=== PATIENT | male | born 1950 | race African-American/Black ===

== ENCOUNTER 2018-07-24 23:33 | Inpatient (IN) | payer MEDICARE, OTHER ==
--- NOTE | 2018-07-25 00:21 | PDOC.FPRHP ---
- History of Present Illness Chief Complaint: Right sided weakness History of Present Illness: Mr Pineda is a 67yo male presenting with right sided weakness and numbness. He states that tonight he started to have some tingling and numbness in his R leg. He had a recent CVA in April that left with R sided weakness. He said that he never made a full recovery from his last stroke and that he pretended he was better before so he could get out of the hospital. He states that nothing changed tonight except some numbness in his leg. He denies any worsening weakness today. He states his speech has also been bad since his stroke but he denies any acute change. He states that he came to the hospital because he felt weak, short of breath and high blood pressure. He will intermittently say he had weakness, then deny weakness. He cannot state what time it started. Reports state estimated 2030 last night but he reports no acute change. He told ERMD symptoms started last Thursday. ED Course: ASA given. No TPA due to having taken Eliquis earlier today and unclear start of symptoms. - Allergies/Adverse Reactions Allergies Allergy/AdvReac Type Severity Reaction Status Date / Time iodine Allergy Verified 07/25/18 00:54 - Home Medications Medication Instructions Recorded Confirmed Type Apixaban [Eliquis] 5 mg PO BID 07/25/18 07/25/18 History Aspirin [Adult Aspirin] 81 mg PO QAM 07/25/18 07/25/18 History Atorvastatin Calcium 40 mg PO HS 07/25/18 07/25/18 History Carvedilol [Coreg] 3.125 mg PO BID 07/25/18 07/25/18 History Hydrochlorothiazide 25 mg PO QAM 07/25/18 07/25/18 History Loratadine [Claritin] 10 mg PO QAM 07/25/18 07/25/18 History Ondansetron HCl [Zofran] 4 mg PO PRN PRN 07/25/18 07/25/18 History - History PMHx: [place], CVA with residual R sided weakness, arrhythmia (a fib) on Eliquis, HTN , chronic back pain, stomach ulcer, chronic L knee pain PSHx: Back surgery FHx: sister: hypotension; brother/dad: HTN Social: Remote h/o tobacco abuse (30 yrs smoking 10 cigars/day), denies tobacco or drug use - Review of Systems General: reports: fever/chills. denies: weight/appetite/sleep changes Eyes: reports: vision changes (R eye "can't see"). denies: eye pain ENT: denies: nasal congestion, rhinorrhea Respiratory: reports: cough, congestion, shortness of breath Cardiovascular: reports: palpitation. denies: chest pain Gastrointestinal: denies: nausea, vomiting, diarrhea Genitourinary: denies: incontinence, dysuria Skin: denies: rashes, lesions Musculoskeletal: denies: pain, tenderness Neurological: reports: numbness, weakness - Vital signs BP: 173/85 HR: 51 RR: 18 Tmax: 98.4 Pox: 100% on RA Wt: 104kg - Physical Exam Constitutional: NAD, well developed, other (oriented to person) HEENT: normocephalic and atraumatic, conjunctiva clear Neck: supple, trachea midline Heart: normal S1/S2, no murmurs/rubs/gallops, other (bradycardia) Lungs: CTAB, no respiratory distress Abdomen: soft, non-tender Musculoskeletal: normal structure Neurological: other (RUE/RLE strength 2/5, diminishes gross and pinprick sensation in RUE and RLE, diminished gross sensation on V1-V3, CN X and XI deficit on R (diminished ability to shrug shoulder on R and decreased strength looking R). Speech understandable. EOMI unable to elicit. Tongue symmetric. Would not cooperate with Romberg, Babinski. Intact clcg-eh-mogs on L, cannot on R.) Skin: no rash/lesions, good turgor Psychiatric: other (flat affect, poor judgement and insight) FMR H&P: Results - Radiology Interpretation CT scan - head Status: image reviewed by me, report reviewed by me Additional comment: Evidence for old or subacute infarct changes in left frontal lobe, left middle cerebral artery and smaller more punctate focus in left parasagittal parietal region. No evidence for acute infarct by CT. FMR H&P: A/P - Problem List (1) CVA (cerebral vascular accident) Current Visit: Yes Status: Acute Code(s): I63.9 - CEREBRAL INFARCTION, UNSPECIFIED (2) Atrial fibrillation Current Visit: Yes Status: Acute Code(s): I48.91 - UNSPECIFIED ATRIAL FIBRILLATION (3) HTN (hypertension) Current Visit: Yes Status: Acute Code(s): I10 - ESSENTIAL (PRIMARY) HYPERTENSION (4) Back pain Current Visit: Yes Status: Acute Code(s): M54.9 - DORSALGIA, UNSPECIFIED (5) CVA, old, hemiparesis Current Visit: Yes Status: Acute Code(s): I69.359 - HEMIPLGA FOLLOWING CEREBRAL INFARCTION AFFECTING UNSP SIDE (6) SHALONDA (acute kidney injury) Current Visit: Yes Status: Acute Code(s): N17.9 - ACUTE KIDNEY FAILURE, UNSPECIFIED - Plan Mr Pineda is a 67 yo male presenting with right sided deficits Right sided weakness - Pt reports persistent right sided weakness since - No CTA preformed due to reported iodine allergy. - Carotid dopplers ordered - MRI tmw - Consider Neuro consult once MRI results - Consider Echo once records received - Neurochecks q4hrs - Permissive HTN, holding home HCTZ and Coreg SHALONDA vs CKD - Gentle IVF, LR @100 - Check BMP in AM HTN - Permissive for 24h - Holding Coreg and HCTZ Atrial fibrillation - Continue Eliquis - Monitor on tele Bradycardia - Consider cards consult - Holding Coreg Code Status: FULL DVT ppx: Eliquis FMR H&P: Upper Level - Pertinent history 67 yo M with PMHx CVA with R sided deficits presents to ED with concern of acute worsening of R sided deficits. Per patient, no symptom change since last admission. Otherwise, ROS noncontributory. - Pertinent findings Gen: awake, alert, oriented x1 HEENT: NCAT, EOMI grossly normal, trachea midline CV: irregularly, irregular rhythm, no murmur RESP: CTAB, symmetrical chest expansion ABD: soft, NTND EXT: RUE and RLE strength diminished 2/5, diminished sensation on R face and RUE /RLE Skin: Chronic skin changes on BLE - Plan Date/Time: 07/25/18 0020 67 yo M with R sided deficits, likely related to old CVA 1. R sided deficits - Patient reports no change, CT showed old infarct - No CTA 2/2 iodine allergy and > 24 hours since symptom onset (Thursday per ERMD , no change per our history) - Will monitor on stroke, NIH score - Permissive HTN 2. HTN - Permissive for 24h 3. Atrial fibrillation - Intermittent bradycardia - Continue eliquis I, Fabiana Escobar MD, PGY-3, have evaluated this patient and agree with findings/ plan as outlined by manager internship resident. Pertinent changes/additions are listed here.
[2018-07-25 00:47] LABS: INR-International Normal Ratio 1.1; PTT 32.1 SEC (22.9-36.1); Prothrombin Time 14.7 SEC (12.0-14.7)
[2018-07-25] MEDS ORDERED: Ondansetron PF 4 MG/2 ML Vial IVP PRN (02:42)
[2018-07-25] MEDS ORDERED: Acetaminophen 325 MG TAB PO PRN (02:42)
[2018-07-25] MEDS ORDERED: Ondansetron ODT 4 MG TAB SL PRN (02:42)
[2018-07-25 03:00] VITALS: BMI 29.5
[2018-07-25] MEDS ORDERED: Aspirin 81 mg Enteric Coated Tablet PO SCH (03:00)
[2018-07-25] MEDS: Lactated Ringer's 1,000 ML IV SCH ×3 (04:43→20:38)
[2018-07-25 05:12] LABS: Anion Gap 12 mmol/L (10-20); BUN (Urea Nitrogen) 19 mg/dL (8.4-25.7); Calc. Creatinine Clearance 107 mL/min (70-130); Calcium 9.2 mg/dL (7.8-10.44); Carbon Dioxide 25 mmol/L (23-31); Cardiac Risk 2.6 (Less than 4.5); Chloride 105 mmol/L (98-107); Cholesterol 136 mg/dl (< 200 Desired); Estimated GFR-MDRD 79; Glucose 89 mg/dL (80-115); HDL Cholesterol 52 mg/dL (>60 Neg Risk); LDL Cholesterol, Calculated 72 mg/dL; Potassium 4.1 mmol/L (3.5-5.1); Sodium 138 mmol/L (136-145); Triglycerides 59 mg/dL (Less than 150)
[2018-07-25] MEDS ORDERED: Apixaban 5 MG TAB PO SCH (09:00)
[2018-07-25] MEDS ORDERED: Prevnar 13-Val Conj/PF 0.5 ML SYRINGE IM ONE (09:00)
[2018-07-25] MEDS: Aspirin 81 mg Enteric Coated Tablet PO SCH (09:52)
[2018-07-25] MEDS: Loratadine 10 MG TAB PO SCH (09:52)
--- NOTE | 2018-07-25 12:20 | ULT ---
BILATERAL CAROTID DUPLEX ULTRASOUND: Date: 07/25/18 HISTORY: Right-sided weakness. FINDINGS: Real-time color Doppler evaluation of the right and left carotid systems shows some plaque formation at the origin of both internal carotid arteries, more prominent on the left. On the right side, peak systolic velocities of the common carotid were 94 cm/second. Internal carotid velocities were 40 cm/second and external carotid velocities were 70 cm/second. On the left side, peak systolic velocities of the common carotid were 89 cm/second. Internal carotid velocities were 54 cm/second and external carotid velocities were 59 cm/second. Vertebral flow was antegrade bilaterally. IMPRESSION: No evidence of hemodynamically significant stenosis of either internal carotid artery. POS: GABO
--- NOTE | 2018-07-25 12:53 | MRI ---
MRI OF THE BRAIN WITHOUT IV CONTRAST: Date: 07/25/18 INDICATION: Acute right-sided leg weakness with tingling that started last P.M. with a history of previous CVA. TECHNIQUE: Noncontrast MR images were obtained of the brain. No CT or MR comparisons are available. FINDINGS: There is a prominent area of diminished T2 signal, with diminished signal on the gradient echo images involving the left frontal cortex with surrounding vasogenic edema. A similar appearing focus is see n involving the cortex of the left parietal lobe near the vertex on image 17 and image 18 of series 4 without definite restricted diffusion. No additional suspicious cortically based signal abnormality is evident. There is mild chronic small vessel white matter ischemic change. Septum pellucidum and th ird ventricle are midline. Appropriate flow-voids are seen within the major intracranial vessels. Sku ll appears intact. IMPRESSION: 1. Cortically based signal abnormalities do not have the appearance of typical cortically based infa rct, particularly the one along the left frontal cerebral convexity where there is low T2 signal with patchy areas of high T1 signal. This may reflect a small cortically based infarct with some hemorrha gic conversion; a hemorrhagic cortically based mass with surrounding vasogenic edema cannot be entire ly excluded. 2. Additional small signal abnormality seen involving the cortex of the left parietal lobe without a ssociated restricted diffusion, also suspicious for either a late subacute cortically based infarct o r metastatic lesion. 3. Follow-up MRI of the brain with and without contrast is recommended for additional characterizatio n. LUIZ T. POS: CET
--- NOTE | 2018-07-25 18:51 | PDOC.EVN ---
Event Note - Event Note Event Note: Residents paged for change in mental status, slightly more drowsy and feeling dizzy. He had a 18 beat run of V-tach at 1730. Denied chest pain. Stated sitting up made him feel more dizzy. Orderd orthostatics. Positive by pulse. Ordered stat EKG, troponin. 500ml bolus.
[2018-07-25] MEDS ORDERED: Lactated Ringer's 500 ML IV SCH (19:00)
[2018-07-25] MEDS ORDERED: hydrALAZINE 20 MG/ML VIAL SLOW IVP SCH (20:30)
[2018-07-25] MEDS: Atorvastatin Calcium 40 MG TAB PO SCH (20:36)
[2018-07-26] MEDS: hydrALAZINE 20 MG/ML VIAL SLOW IVP PRN ×2 (01:28→23:44)
--- NOTE | 2018-07-26 06:35 | PDOC.FM ---
- Subjective Subjective: Mr. Pineda is resting comfortably in bed, reports he did not sleep well last night 2/2 to people awaking him. He denies CP/SOB. He had an 18 beat run of non- sustained Vtach. asymptomatic - Objective Vital Signs & Weight: Vital Signs (12 hours) Temp Pulse Resp BP BP BP BP 07/26/18 03:34 98.8 F 65 14 140/75 07/26/18 01:28 56 L 172/81 H 07/25/18 23:34 98.9 F 56 L 14 172/81 H 07/25/18 20:36 64 07/25/18 19:50 99.0 F 58 L 12 178/80 H 07/25/18 18:41 161/77 H 172/96 H 143/97 H Pulse Ox 07/26/18 03:34 99 07/26/18 01:28 07/25/18 23:34 98 07/25/18 20:36 07/25/18 19:50 07/25/18 18:41 Weight Weight 115.666 kg I&O: 07/24/18 07/25/18 07/26/18 06:59 06:59 06:59 Intake Total 3577 Output Total 3950 Balance -373 Result Diagrams: 07/25/18 04:45 Phys Exam - Physical Examination Constitutional: NAD HEENT: moist MMs Neck: no JVD Respiratory: clear to auscultation bilateral Cardiovascular: RRR, no significant murmur Gastrointestinal: soft, non-tender Musculoskeletal: no edema, pulses present R sided hemiparesis, baseline Lymphatic: no nodes Skin: no rash Dx/Plan (1) Nonsustained ventricular tachycardia Code(s): I47.2 - VENTRICULAR TACHYCARDIA Status: Acute (2) Atrial fibrillation Code(s): I48.91 - UNSPECIFIED ATRIAL FIBRILLATION Status: Acute (3) CVA, old, hemiparesis Code(s): I69.359 - HEMIPLGA FOLLOWING CEREBRAL INFARCTION AFFECTING UNSP SIDE Status: Acute (4) HTN (hypertension) Code(s): I10 - ESSENTIAL (PRIMARY) HYPERTENSION Status: Acute - Plan Plan: Right sided weakness - Pt reports persistent right sided weakness since prior CVA last year - No CTA preformed due to reported iodine allergy. - Carotid dopplers wnl - MRI showed subcortical abnormalities, unable to be completely evaluated - MRI w/wo con today, neurosurgery consulted. appreciate recs - Neurochecks q4hrs - Permissive HTN, holding home HCTZ SHALONDA vs CKD - Gentle IVF, LR @100 - Check BMP in AM HTN - Permissive for 24h - Holding HCTZ Atrial fibrillation - Continue Eliquis - Monitor on tele Bradycardia - coreg was held, consider restarting Non sustained vtach - 18 beats on 07/26 - see above Code Status: FULL DVT ppx: Eliquis, held for MRI findings
--- NOTE | 2018-07-26 08:37 | HP ---
ADDENDUM: Please see the note from Dr. Quintanilla's, for which I agree. The patient was seen, evaluated, and examined with residents by bedside. Please see also the progress note from this morning done by Dr. Dillard. HISTORY OF PRESENT ILLNESS: This is a 67-year-old Afro-[place] gentleman, who presents with vague constellation of symptoms. It sounds like basically in March or April, had an GA and CVA and was taken care of at a [facility] in the [facility] and he states he felt similar like the same thing was basically happening. He is an extremely poor historian as he really had hard time pinpointing his exact symptoms. It sounds like ever since he has had a stroke, he has had right-sided weakness and some word-finding difficulty, but it sounds like maybe it worsened on the day of admission, although he was very vague about, it was a worse or not. There is a question if he is even able to walk or he is wheelchair-bound now in shelter. But this morning, he states he feels like maybe it is a little bit worsening right leg and right arm weakness. He was not a candidate for tPA because he is on Eliquis and had the recent stroke in the last few months. He states he felt a little bit more short of breath as well. He was found to be in slow atrial fibrillation with a pulse rate in the 40s and 50s, and it is unclear if that is really new or not, but based on medications, I am assuming that was there before. PAST MEDICAL HISTORY: All per Dr. Quintanilla's history and physical, for which I agree. PAST SURGICAL HISTORY: All per Dr. Quintanilla'dylon history and physical, for which I agree. HOME MEDICATIONS: All per Dr. Quintanilla'dylon history and physical, for which I agree. FAMILY HISTORY: All per Dr. Quintanilla'dylon history and physical, for which I agree. SOCIAL HISTORY: All per Dr. Quintanilla's history and physical, for which I agree. REVIEW OF SYSTEMS: All per Dr. Quintanilla's history and physical, for which I agree. PHYSICAL EXAMINATION: VITAL SIGNS: Blood pressure is borderline high too, even though systolic up in the 160s. GENERAL: No apparent distress. Normally slurring his speech, but is definitely slow to speak. I do not appreciate any cranial nerve abnormalities. NECK: There are no bruits in his neck. CHEST: Clear. CARDIOVASCULAR: Slow and irregular. ABDOMEN: Benign. EXTREMITIES: No edema. NEUROLOGIC: Rest of neurologic exam significant for really only 2 to 3+/5 some strength in the right upper and right lower extremity as he is barely able to oppose gravity consistently, although it was not always the most consistent exam. CT did show old strokes on the left side. Blood workup for the most part looked pretty normal. ASSESSMENT AND PLAN: 1. Cerebrovascular accident really it is unclear if this is new or if this is just his baseline after the stroke for a few months ago and we will try to mota down those old records to differentiate that. 2. Atrial fibrillation on correct blood thinners for that. Pulse is controlled, now a little bit slow, actually we are going to hold off on Coreg for now. 3. Hypertension, fair control. Going to allow him maybe a little bit high now until we get the MRI back to figure out if this was an acute stroke or not. 4. Mildly elevated creatinine. The plan is to continue blood thinners, tele, we are going to get Neurology involved, swallowing study, and MRI of the brain. There is some question if he has contrast allergies to iodine, although it is again somewhat confusing. So, MRI of the brain with gadolinium should be fine and we will base some plan really on what it shows. Job ID: [id number]
[2018-07-26] MEDS: Lactated Ringer's 1,000 ML IV SCH ×2 (09:22→17:56)
[2018-07-26] MEDS: Aspirin 81 mg Enteric Coated Tablet PO SCH (09:24)
[2018-07-26] MEDS: Loratadine 10 MG TAB PO SCH (09:24)
[2018-07-26] MEDS ORDERED: Lorazepam 0.5 MG TAB PO SCH (11:41)
[2018-07-26 13:57] LABS: Syphilis Antibody Nonreactive (Nonreactive); Syphilis Antibody Index 0.12 S/CO (<1.00 Non-Reactive)
[2018-07-26 13:59] LABS: HBSAg Index 0.27 S/CO (0-0.99); HIV (1/2) Antibody/Antigen Non-Reactive (NonReactive); HIV 1/2 INDEX 0.09 S/CO (<1.00); Hep B Surf Ag Non-Reactive S/CO (NonReactive)
--- NOTE | 2018-07-26 14:38 | PRG ---
DATE OF SERVICE: 07/26/2018 ADDENDUM: This is an addendum to the note of Dr. Kevin Dillard. SUBJECTIVE: Mr. Pineda is a 67-year-old patient, who presented with some right-sided numbness and possible weakness. He states, however, he really feels unchanged as far as weakness goes from a stroke he had back in April of 2018. This morning, he is awake, alert, no distress, very talkative and no acute issues. Blood pressure well controlled at 134/67. Chemistries show sodium 138, potassium 4.1, chloride 105, bicarb 25, BUN 19, creatinine 1.13. We will continue with his post stroke care that started in April 2018. Job ID: [id number]
[2018-07-26] MEDS: Atorvastatin Calcium 40 MG TAB PO SCH (20:21)
[2018-07-27] MEDS: Lactated Ringer's 1,000 ML IV SCH ×2 (05:07→16:29)
--- NOTE | 2018-07-27 06:54 | PDOC.FM ---
- Subjective Subjective: Mr. Pineda is resting comfortably in bed, no acute events overnight, reports feeling better. Records received from prior hospital admission regarding CVA: it appears as though MRI findings at that time are similar to what we are seeing now. Deficits at baseline. - Objective Vital Signs & Weight: Vital Signs (12 hours) Temp Pulse Resp BP BP Pulse Ox 07/27/18 04:00 98.2 F 63 18 149/80 H 97 07/27/18 00:00 99.0 F 56 L 18 160/76 H 97 07/26/18 23:44 66 160/76 H 07/26/18 20:00 98.4 F 72 18 135/59 L 97 Weight Weight 115.666 kg I&O: 07/25/18 07/26/18 07/27/18 06:59 06:59 06:59 Intake Total 3577 2030 Output Total 3950 420 Balance -373 1610 Result Diagrams: 07/27/18 07:24 Phys Exam - Physical Examination Constitutional: NAD HEENT: moist MMs Neck: no JVD Respiratory: clear to auscultation bilateral Cardiovascular: no significant murmur Gastrointestinal: soft, non-tender Musculoskeletal: no edema, pulses present deficits at baseline Psychiatric: normal affect Skin: no rash Dx/Plan (1) Nonsustained ventricular tachycardia Code(s): I47.2 - VENTRICULAR TACHYCARDIA Status: Acute (2) Atrial fibrillation Code(s): I48.91 - UNSPECIFIED ATRIAL FIBRILLATION Status: Acute (3) CVA, old, hemiparesis Code(s): I69.359 - HEMIPLGA FOLLOWING CEREBRAL INFARCTION AFFECTING UNSP SIDE Status: Acute (4) HTN (hypertension) Code(s): I10 - ESSENTIAL (PRIMARY) HYPERTENSION Status: Acute - Plan Plan: Right sided weakness - Pt reports persistent right sided weakness since prior CVA last year - No CTA preformed due to reported iodine allergy. - Carotid dopplers wnl - MRI showed subcortical abnormalities, unable to be completely evaluated - consider MRI w/wo con today, neurosurgery consulted. appreciate recs - most likely old MRI findings - Neurochecks q4hrs SHALONDA vs CKD - Gentle IVF, LR @100 - Check BMP in AM HTN - continue home meds Atrial fibrillation - Eliquis held, restart today - Monitor on tele Non sustained vtach - metoprolol started, continue to monitor Code Status: FULL DVT ppx: Eliquis, held for MRI findings dispo: possible DC pending placement
[2018-07-27 07:58] LABS: Anion Gap 11 mmol/L (10-20); BUN (Urea Nitrogen) 22 mg/dL (8.4-25.7); Calc. Creatinine Clearance 123 mL/min (70-130); Carbon Dioxide 27 mmol/L (23-31); Chloride 107 mmol/L (98-107); Estimated GFR-MDRD Greater than 90; Glucose 95 mg/dL (80-115); Sodium 141 mmol/L (136-145)
[2018-07-27] MEDS: Loratadine 10 MG TAB PO SCH (08:50)
--- NOTE | 2018-07-27 12:47 | PRG ---
DATE OF SERVICE: 07/27/2018 Mr. Pineda is sitting quietly in bed, in no acute distress. His neurological exam is unchanged. We had asked for input from Neurosurgery, but they did not come by yesterday, and so far, not today. I really believe the CT, MRI changes are related to old stroke that occurred in April of 2018. We will therefore discharge him on his usual chronic medications for poststroke care. Job ID: [id number]
[2018-07-27] MEDS: Aspirin 81 mg Enteric Coated Tablet PO SCH (13:20)
--- NOTE | 2018-07-27 14:42 | CON ---
DATE OF CONSULTATION: SERVICE: Neurosurgical Service. HISTORY OF PRESENT ILLNESS: Mr. Pineda is a 67-year-old man, admitted to the Stroke Unit here at [place] for evaluation of tingling and numbness in the right lower extremity as well as some subjective weakness. He does have a recent history of stroke in April of this past year resulting in right-sided weakness that was persistent, particularly in the right upper extremity. He reported that upon admission, he had new symptoms which included the right lower extremity. MRI ultimately was performed that revealed some small areas of hemorrhagic conversion within the left frontal lobe in the left MCA distribution. He is on aspirin, but this has been held since finding of the MRI. For this reason, Neurosurgery was consulted at bedside. The patient is in and out of consciousness somewhat. Upon encouragement, patient does have a more sustained level of consciousness and is able to detail his previous initial stroke and then detailed the admission on this time. He has some mild loss in the proximal right upper extremity in terms of motor function, but has good locks inspector strength, right lower extremity and left lower extremity are essentially equal in terms of strength. He is not a particularly great historian regarding his current illness, but in any case, looks to be neurologically stable. Recommendation from Neurosurgery holding all anticoagulants and we will re-image with a contrast MRI in roughly three weeks in the outpatient setting. Job ID: [id number]
[2018-07-27] MEDS: Atorvastatin Calcium 40 MG TAB PO SCH (21:15)
[2018-07-28] MEDS: Lactated Ringer's 1,000 ML IV SCH ×2 (02:04→02:23)
--- NOTE | 2018-07-28 02:52 | PDOC.EVN ---
Event Note - Event Note Event Note: Nurse called to report 2 sec pause on tele monitor ~0230, followed shortly by 2.4 second pause. Went to examine patient. Patient was symptomatic with lightheadedness. Also complained of intermittent L sided chest pain and LUQ pain that was sharp and worse with movement. Denied nausea/vom/diaphoresis. EKG showed bradycardia to high 40s with afib, stable from last EKG. PE: BP stable, systolic BP improved from 140 to 120 with hydralazine Chest: Left lower chest/LUQ abd slightly tender to palpation A&P: -Continue to monitor overnight. Patient will most likely need a cardiology consult in the morning.
[2018-07-28 05:41] LABS: Anion Gap 11 mmol/L (10-20); BUN (Urea Nitrogen) 19 mg/dL (8.4-25.7); Calc. Creatinine Clearance 116 mL/min (70-130); Carbon Dioxide 26 mmol/L (23-31); Chloride 107 mmol/L (98-107); Estimated GFR-MDRD 87; Glucose 89 mg/dL (80-115); Sodium 140 mmol/L (136-145)
--- NOTE | 2018-07-28 06:33 | PDOC.FM ---
- Subjective Subjective: Mr. Pineda is doing well, reports dizziness this morning. he has complained of dizziness since admission. rib pain with palpation. no SOB/CP - Objective Vital Signs & Weight: Vital Signs (12 hours) Temp Pulse Resp BP BP Pulse Ox 07/28/18 06:15 59 L 153/80 H 07/28/18 04:00 98.5 F 54 L 18 170/78 H 99 07/28/18 00:00 97.5 F L 64 18 129/75 97 07/27/18 20:00 98.4 F 60 19 140/68 97 Weight Weight 115.666 kg I&O: 07/26/18 07/27/18 07/28/18 06:59 06:59 06:59 Intake Total 3577 2030 2245 Output Total 3950 420 1910 Balance -373 1610 335 Result Diagrams: 07/28/18 04:47 Phys Exam - Physical Examination Constitutional: NAD HEENT: moist MMs Neck: no JVD Respiratory: clear to auscultation bilateral Cardiovascular: RRR, no significant murmur Musculoskeletal: no edema, pulses present baseline deficets Skin: no rash Dx/Plan (1) Nonsustained ventricular tachycardia Code(s): I47.2 - VENTRICULAR TACHYCARDIA Status: Acute (2) Atrial fibrillation Code(s): I48.91 - UNSPECIFIED ATRIAL FIBRILLATION Status: Acute (3) CVA, old, hemiparesis Code(s): I69.359 - HEMIPLGA FOLLOWING CEREBRAL INFARCTION AFFECTING UNSP SIDE Status: Acute (4) HTN (hypertension) Code(s): I10 - ESSENTIAL (PRIMARY) HYPERTENSION Status: Acute - Plan Plan: Right sided weakness - Pt reports persistent right sided weakness since prior CVA last year - No CTA preformed due to reported iodine allergy. - Carotid dopplers wnl - MRI showed subcortical abnormalities, unable to be completely evaluated - neurosurgery consulted. appreciate recs - repeat MRI w/con outpt - Neurochecks q4hrs SHALONDA vs CKD - monitor BMP in AM HTN - continue home meds Atrial fibrillation - Eliquis held - Monitor on tele Non sustained vtach - metoprolol started, continue to monitor - symptomatic sinus pausex2 on 07/28 - possibly developing sick sinus syndrome, metoprolol held this morning. Code Status: FULL DVT ppx: Eliqujada, held for MRI findings dispo: possible DC pending placement, cards eval
[2018-07-28] MEDS: Loratadine 10 MG TAB PO SCH (10:30)
--- NOTE | 2018-07-28 10:34 | EKG ---
Test Reason : Blood Pressure : / mmHG Vent. Rate : 048 BPM Atrial Rate : 312 BPM P-R Int : 000 ms QRS Dur : 100 ms QT Int : 448 ms P-R-T Axes : 000 010 -23 degrees QTc Int : 400 ms Atrial fibrillation with slow ventricular response Abnormal ECG When compared with ECG of 25-JUL-2018 20:32, No significant change was found Confirmed by DR. Sarita TAN ([id number]) on 07/28/2018 10:34:34 AM Referred By: ANA SAMUELS *r Confirmed By:DR. Sarita TAN
--- NOTE | 2018-07-28 12:24 | PRG ---
DATE OF SERVICE: 07/28/2018 Really there have been no significant changes in Mr. Pineda's status. He was seen by Neurosurgery, who agreed with holding the Eliquis and repeating an MRI in about 3 months. During the night Mr. Pineda has drops in his pulse rate down into the 30s. He demonstrates atrial fibrillation and this does not seem to be occurring during his waking hours. In the event, given his precarious cardiac status and the fact he is on a beta jamal for good reason, we will get an opinion from Cardiology regarding our management. Job ID: [id number]
[2018-07-28] MEDS: Atorvastatin Calcium 40 MG TAB PO SCH (21:24)
--- NOTE | 2018-07-29 06:33 | PDOC.FM ---
- Subjective Subjective: Mr. Pineda is feeling good today, denies dizziness or CP - Objective Vital Signs & Weight: Vital Signs (12 hours) Temp Pulse Resp BP BP Pulse Ox 07/29/18 03:19 99.2 F 73 18 134/72 96 07/28/18 23:25 98.4 F 73 18 156/82 H 94 L 07/28/18 20:00 98 07/28/18 19:43 98.0 F 53 L 18 162/80 H 98 Weight Weight 115.666 kg I&O: 07/27/18 07/28/18 07/29/18 06:59 06:59 06:59 Intake Total 2030 2245 980 Output Total 420 1910 Balance 1610 335 980 Result Diagrams: 07/28/18 04:47 Phys Exam - Physical Examination Constitutional: NAD HEENT: moist MMs Neck: no JVD Respiratory: clear to auscultation bilateral Cardiovascular: RRR, no significant murmur Gastrointestinal: soft Musculoskeletal: pulses present Psychiatric: normal affect Skin: no rash Dx/Plan (1) Nonsustained ventricular tachycardia Code(s): I47.2 - VENTRICULAR TACHYCARDIA Status: Acute (2) Atrial fibrillation Code(s): I48.91 - UNSPECIFIED ATRIAL FIBRILLATION Status: Acute (3) CVA, old, hemiparesis Code(s): I69.359 - HEMIPLGA FOLLOWING CEREBRAL INFARCTION AFFECTING UNSP SIDE Status: Acute (4) HTN (hypertension) Code(s): I10 - ESSENTIAL (PRIMARY) HYPERTENSION Status: Acute - Plan Plan: Right sided weakness - Pt reports persistent right sided weakness since prior CVA last year - No CTA preformed due to reported iodine allergy. - Carotid dopplers wnl - MRI showed subcortical abnormalities, unable to be completely evaluated - neurosurgery consulted. appreciate recs - repeat MRI w/con outpt - Neurochecks q4hrs SHALONDA vs CKD, resolved - aware HTN - continue home meds Atrial fibrillation - Eliquis held, 2/2 poss hemorrhagic conversion of ischemic CVA - Monitor on tele Non sustained vtach - metoprolol started, continue to monitor - symptomatic sinus pausex2 on 07/28 - possibly developing sick sinus syndrome, metoprolol held this morning. - cardiology consult, appreciate recs, possible AICD/pacer Code Status: FULL DVT ppx: Eliquis, held for MRI findings dispo: possible DC pending placement, cards eval
[2018-07-29] MEDS: Acetaminophen 325 MG TAB PO PRN ×2 (09:42→18:20)
[2018-07-29] MEDS: Loratadine 10 MG TAB PO SCH (09:42)
--- NOTE | 2018-07-29 11:52 | PRG ---
DATE OF SERVICE: 07/29/2018 Mr. Pineda is exhibiting no changes this morning. He is still very slow of speech which seems to be his norm. We are awaiting the recommendations from Cardiology regarding the use of beta jamal given his episodes of nonsustained ventricular tachycardia on top of very slow at times atrial fibrillation. Otherwise, he will be ready for transfer to rehab. Job ID: [id number]
[2018-07-29] MEDS: Atorvastatin Calcium 40 MG TAB PO SCH (22:08)
--- NOTE | 2018-07-30 06:44 | PDOC.FM ---
- Subjective Subjective: Mr. Pineda is resting comfortably in bed, he reports a headache, but denies dizziness - Objective Vital Signs & Weight: Vital Signs (12 hours) Temp Pulse Resp BP BP Pulse Ox 07/30/18 04:00 97.9 F 70 20 143/67 H 98 07/30/18 00:00 98.8 F 79 19 134/62 97 07/29/18 20:08 98.3 F 58 L 25 H 140/76 98 07/29/18 20:00 98 Weight Weight 115.666 kg I&O: 07/28/18 07/29/18 07/30/18 06:59 06:59 06:59 Intake Total 2245 980 720 Output Total 1910 300 Balance 335 980 420 Result Diagrams: 07/28/18 04:47 Phys Exam - Physical Examination Constitutional: NAD HEENT: moist MMs Respiratory: clear to auscultation bilateral Cardiovascular: no significant murmur Gastrointestinal: soft, non-tender Musculoskeletal: no edema Neurological: moves all 4 limbs Lymphatic: no nodes Psychiatric: normal affect Skin: no rash Dx/Plan (1) Nonsustained ventricular tachycardia Code(s): I47.2 - VENTRICULAR TACHYCARDIA Status: Acute (2) Atrial fibrillation Code(s): I48.91 - UNSPECIFIED ATRIAL FIBRILLATION Status: Acute (3) CVA, old, hemiparesis Code(s): I69.359 - HEMIPLGA FOLLOWING CEREBRAL INFARCTION AFFECTING UNSP SIDE Status: Acute (4) HTN (hypertension) Code(s): I10 - ESSENTIAL (PRIMARY) HYPERTENSION Status: Acute - Plan Plan: Right sided weakness - Pt reports persistent right sided weakness since prior CVA last year - No CTA preformed due to reported iodine allergy. - Carotid dopplers wnl - MRI showed subcortical abnormalities, unable to be completely evaluated - neurosurgery consulted. appreciate recs - repeat MRI w/con outpt - Neurochecks q4hrs SHALONDA vs CKD, resolved - aware HTN - continue home meds Atrial fibrillation - Eliquis held, 2/2 poss hemorrhagic conversion of ischemic CVA - Monitor on tele Non sustained vtach - metoprolol started, continue to monitor - symptomatic sinus pausex2 on 07/28 - possibly developing sick sinus syndrome, metoprolol held this morning. - cardiology consulted, Dr. Singh, recommend EP consult - EP Dr. Gallegos recommended continuing metoprolol, follow up outpatient - no intervention at this time Code Status: FULL DVT ppx: Harrison, held for MRI findings dispo: DC to inpt rehab today
--- NOTE | 2018-07-30 09:18 | CON ---
DATE OF CONSULTATION: 07/29/2018 REFERRING PHYSICIAN: Dr. Fraga. I am seeing Mr. Pineda at our [facility] telemetry floor as an electrophysiology assessment consultant for the following problems: 1. Chronic atrial fibrillation: a. 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 2. Short nonsustained ventricular tachycardia. 3. Cardiomyopathy with LVEF of 40 % to 45 % on 2D echo from 07/25/2018, reveals LVEF was 50%. Left atrial size normal. History of CVA in April 2018 with residual right-sided weakness without full recovery. He was admitted for worsening weakness, but eventually is deemed not to have a new stroke. He continued to be in atrial fibrillation here while on telemetry. He had an asymptomatic nonsustained wide-complex tachycardia run. He was continued on beta jamal therapy, although had some kassy arrhythmias and the beta-blockers were held. This morning, he had more rapid heart beat. On further questioning, currently he is mostly lying in bed. He does mention some dizziness on ambulating and laying down both. He is a very poor historian, does not differentiate between the symptoms at all. He denies chest pains. No dyspnea. No fever, chills, or cough. Continuous residual right-sided weakness is present. REVIEW OF SYSTEMS: Rest of 12-point system, otherwise, unremarkable. PAST MEDICAL HISTORY: As above. MEDICATIONS: Currently include, 1. Tylenol. 2. Lipitor. 3. Apresoline. 4. Claritin. 5. Toprol-XL 15mg a day which was held today. 6. Normal saline. 7. Ativan. 8. Eliquis is on hold. Medications at home included, 1. Aspirin. 2. Apixaban. 3. Lipitor. 4. Carvedilol. 5. Hydrochlorothiazide. 6. Loratadine. 7. Ondansetron. Past history as above. SOCIAL HISTORY: History of tobacco use for 30 years, 10 cigarettes a day. Denies drug use. FAMILY HISTORY: Significant for hypertension in sister and brother. PHYSICAL EXAMINATION: VITAL SIGNS: Blood pressure 143/67, heart rate 57, respirations 16, temperature 99.1 degrees Fahrenheit. GENERAL: Alert and oriented man with no apparent distress. NECK: Supple. Jugular veins not distended. CHEST: Coarse without crackles. HEART: Sounds are irregularly irregular. S1 and S2 are variable. No murmur or gallop. ABDOMEN: Benign. Bowel sounds are positive. EXTREMITIES: Lower extremities without edema, clubbing, or cyanosis. Pulses are adequate. NEUROLOGIC: Nonfocal. MUSCULOSKELETAL: Without joint swelling or deformity. SKIN: Without rash. DATABASE: EKG is reviewed, revealed atrial fibrillation with controlled ventricular rates, some EKGs with 48 beats per minute. LABORATORY DATA: INR 1.1. Sodium 140, potassium 4, BUN 19, creatinine 1.04. The echo again reveals normal left atrial size, LVEF of 40% to 45%, mild mitral regurgitation, mild aortic regurgitation noted. Brain MRI was performed, reveals small cortically based possible infarct with some hemorrhagic conversion, additional signal abnormality in the cortex. ASSESSMENT AND PLAN: Mr. Pineda is a 67-year-old man who has history of recent stroke with history of persistent atrial fibrillation. The stroke in April was ischemic and he was placed back on Eliquis 10 days after discharge. He was admitted with repeat worsening weakness in fear of potential recurrent stroke. On the other hand, he was deemed not to have a new stroke, Eliquis is on hold for minor hemorrhagic changes in the ria-infarct area. While monitoring, he had a short nonsustained ventricular tachycardia. His atrial fibrillation episodes were monitored. He was placed on beta-blockers with his heart rates were lower in the 40s to 50s at times mostly when he was supine or sleeping and not active. Nighttime pauses noted too. Today, the beta blockers were held and his heart rates have shot up quite a bit with activity during ambulation to 160s to 170s. Essentially, he has persistent atrial fibrillation, tachy-kassy syndrome. The exact duration of atrial fibrillation is not clear to me. He may have chronic atrial fibrillation, but hence the normal left atrial size, this could be also [place] duration. Unfortunately, he is off the anticoagulants, and at this point, cardioversion is not a possibility. He has exaggerated heart rate response to both kassy and tachyarrhythmias and has vague nonspecific symptoms. If they worsen, pacing could be a consideration, but this point I think I would hold off on that. I would continue beta-blockers since the nonsustained ventricular arrhythmia and mild to moderate reduced LV function, hence he was not a candidate for ICD therapy. After a period for delay, hopefully, he can go back to Eliquis or alternative anticoagulants, and at the point cardioversion could be considered. Continue beta-jamal and monitoring. Happy to see him back in office if felt necessary. Job ID: [id number] MTDD
[2018-07-30] MEDS: Loratadine 10 MG TAB PO SCH (09:28)
--- NOTE | 2018-07-30 11:26 | PRG ---
DATE OF SERVICE: 07/30/2018 Mr. Pineda was seen in consultation by Dr. Gallegos of the EP Service. We appreciate his input. He felt that the patient did have a tachy-kassy syndrome, but was asymptomatic. He recommend that we continue the beta jamal for his nonsustained ventricular tachycardia. He is thus ready for discharge to either home or rehab. Job ID: [id number]
[2018-07-30] MEDS: Atorvastatin Calcium 40 MG TAB PO SCH (20:36)
--- NOTE | 2018-07-31 06:04 | PDOC.FM ---
- Subjective Subjective: Pt reports feeling well this AM with no new complaints. no concerns or questions at this time. - Objective MAR Reviewed: Yes Vital Signs & Weight: Vital Signs (12 hours) Temp Pulse Resp BP Pulse Ox 07/31/18 04:00 97.6 F 61 18 125/63 99 07/31/18 00:00 97.8 F 80 14 136/72 99 07/30/18 20:00 98.7 F 116 H 14 136/64 97 Weight Weight 115.666 kg I&O: 07/29/18 07/30/18 07/31/18 06:59 06:59 06:59 Intake Total 980 720 750 Output Total 300 800 Balance 980 420 -50 Result Diagrams: 07/28/18 04:47 Phys Exam - Physical Examination Constitutional: NAD HEENT: moist MMs, sclera anicteric Neck: no JVD, supple Respiratory: no wheezing, clear to auscultation bilateral Cardiovascular: RRR, no significant murmur Gastrointestinal: soft, non-tender Musculoskeletal: no edema, pulses present R sided weakness on exam (on command) in UE and LE Pt regained strength in RUE with hand drop test Psychiatric: normal affect, A&O x 3 Skin: no rash, normal turgor Dx/Plan (1) SHALONDA (acute kidney injury) Code(s): N17.9 - ACUTE KIDNEY FAILURE, UNSPECIFIED Status: Acute (2) Atrial fibrillation Code(s): I48.91 - UNSPECIFIED ATRIAL FIBRILLATION Status: Acute (3) CVA, old, hemiparesis Code(s): I69.359 - HEMIPLGA FOLLOWING CEREBRAL INFARCTION AFFECTING UNSP SIDE Status: Acute (4) HTN (hypertension) Code(s): I10 - ESSENTIAL (PRIMARY) HYPERTENSION Status: Acute (5) Nonsustained ventricular tachycardia Code(s): I47.2 - VENTRICULAR TACHYCARDIA Status: Acute - Plan Plan: Right sided weakness A- Pt reports persistent right sided weakness since prior CVA last year. No CTA preformed due to reported iodine allergy. Carotid dopplers wnl. MRI showed subcortical abnormalities, unable to be completely evaluated. Neurosurgery consulted. appreciate recs P- repeat MRI w/con outpt - hold ASA and eliquis until outpt MRI per neuro - Neurochecks q4hrs Atrial fibrillation A- Eliquis and ASA held, 2/2 poss hemorrhagic conversion of ischemic CVA. P- Restart ASA and eliquis after outpt MRI - continue metoprolol - Monitor on tele Non sustained vtach A- symptomatic sinus pausex2 on 07/28. Possibly developing sick sinus syndrome. Cardiology consulted, Dr. Singh, recommend EP consult. EP Dr. Gallegos recommended continuing metoprolol, follow up outpatient P- continue metoprolol - no cardiac intervention at this time SHALONDA -resolved HTN - continue home meds Code Status: FULL DVT ppx: held for MRI findings dispo: DC to inpt rehab vs [facility] once pt has placement
[2018-07-31] MEDS: Loratadine 10 MG TAB PO SCH (08:58)
--- NOTE | 2018-07-31 12:11 | PRG ---
DATE OF SERVICE: 07/31/2018 Mr. Pineda is actually very talkative this morning. He is much more alert than he usually is. He has a course in AFib, but with a controlled ventricular response. We are awaiting placement either at home or in rehab. We certainly appreciate the input from Dr. Gallegos regarding the patient's AFib complicated by runs of nonsustained ventricular tachycardia. We are continuing him on low-dose metoprolol. Job ID: [id number]
--- NOTE | 2018-07-31 15:28 | EKG ---
Test Reason : Blood Pressure : / mmHG Vent. Rate : 046 BPM Atrial Rate : 312 BPM P-R Int : 000 ms QRS Dur : 098 ms QT Int : 432 ms P-R-T Axes : 000 -20 -28 degrees QTc Int : 378 ms Atrial fibrillation with slow ventricular response Minimal voltage criteria for LVH, may be normal variant Nonspecific T wave abnormality , probably digitalis effect Abnormal ECG Confirmed by RANAD GARDUNO MD ([id number]), metropolitan editor ORVILLE BROOKS ([id number]) on 07/31/2018 3:28:22 PM Referred By: Confirmed By:RANDA GARDUNO MD
[2018-07-31] MEDS: Atorvastatin Calcium 40 MG TAB PO SCH (21:07)
--- NOTE | 2018-08-01 05:39 | PDOC.FM ---
- Subjective Subjective: Doing well this AM. no complaints or concerns at this time. Pt motivated to get started on rehab no fever/chills, no cp no new neuro deficits. - Objective MAR Reviewed: Yes Vital Signs & Weight: Vital Signs (12 hours) Temp Pulse Resp BP Pulse Ox 08/01/18 04:42 98.9 F 54 L 16 148/69 H 96 07/31/18 23:19 98.8 F 70 16 137/60 98 07/31/18 20:55 98 07/31/18 19:22 99.6 F 66 16 134/68 98 Weight Weight 115.666 kg I&O: 07/30/18 07/31/18 08/01/18 06:59 06:59 06:59 Intake Total 720 750 840 Output Total 178 670 7233 Balance 420 -50 -310 Result Diagrams: 07/28/18 04:47 Phys Exam - Physical Examination Constitutional: NAD HEENT: moist MMs, sclera anicteric Neck: no JVD, supple Respiratory: no wheezing, clear to auscultation bilateral Cardiovascular: RRR, no significant murmur Gastrointestinal: soft, non-tender Musculoskeletal: no edema, pulses present exam unchanged. reports decreased senstion on rosenberg R side R eye blindness Psychiatric: normal affect, A&O x 3 Skin: no rash, normal turgor Dx/Plan (1) SHALONDA (acute kidney injury) Code(s): N17.9 - ACUTE KIDNEY FAILURE, UNSPECIFIED Status: Acute (2) Atrial fibrillation Code(s): I48.91 - UNSPECIFIED ATRIAL FIBRILLATION Status: Acute (3) CVA, old, hemiparesis Code(s): I69.359 - HEMIPLGA FOLLOWING CEREBRAL INFARCTION AFFECTING UNSP SIDE Status: Acute (4) HTN (hypertension) Code(s): I10 - ESSENTIAL (PRIMARY) HYPERTENSION Status: Acute (5) Nonsustained ventricular tachycardia Code(s): I47.2 - VENTRICULAR TACHYCARDIA Status: Acute - Plan Plan: Right sided weakness A- Pt reports persistent right sided weakness since prior CVA last year. No CTA preformed due to reported iodine allergy. Carotid dopplers wnl. MRI showed subcortical abnormalities, unable to be completely evaluated. Neurosurgery consulted. appreciate recs P- repeat MRI w/con outpt in 3 weeks - hold ASA and eliquis until outpt MRI per neuro - Neurochecks q4hrs - ready for DC, awaiting placement Atrial fibrillation A- Eliquis and ASA held, / poss hemorrhagic conversion of ischemic CVA. P- Restart ASA and eliquis after outpt MRI - continue metoprolol - Monitor on tele Non sustained vtach A- symptomatic sinus pausex2 on 07/28. Possibly developing sick sinus syndrome. Cardiology consulted, Dr. Singh, recommend EP consult. EP Dr. Gallegos recommended continuing metoprolol, follow up outpatient P- continue metoprolol - no cardiac intervention at this time SHALONDA -resolved HTN - continue home meds Code Status: FULL DVT ppx: held for MRI findings dispo: DC to inpt rehab vs care home once pt has placement
[2018-08-01] MEDS: Loratadine 10 MG TAB PO SCH (10:30)
--- NOTE | 2018-08-01 11:07 | PRG ---
DATE OF SERVICE: 08/01/2018 SUBJECTIVE: Mr. Pineda is quite pleasant this morning. He is awake, alert, in no distress. We are still awaiting placement resolution. Job ID: [id number]
[2018-08-01] MEDS: Atorvastatin Calcium 40 MG TAB PO SCH (21:48)
[2018-08-01] MEDS: Acetaminophen 325 MG TAB PO PRN (21:48)
--- NOTE | 2018-08-02 06:01 | PDOC.FM ---
- Subjective Subjective: No overnight events. He reports he has a tension headache this morning. Denies SOB, chest pain. Continues to have right sided weakness. His sister is currently working on his insurance so he may qualify for inpt rehab placement. Voiding and stooling, no other concerns. - Objective MAR Reviewed: Yes Vital Signs & Weight: Vital Signs (12 hours) Temp Pulse Resp BP Pulse Ox 08/02/18 04:00 97.9 F 56 L 16 120/64 98 08/02/18 00:16 97.1 F L 87 16 114/58 L 96 08/01/18 20:59 98 Weight Weight 115.666 kg I&O: 07/31/18 08/01/18 08/02/18 06:59 06:59 06:59 Intake Total 750 840 720 Output Total 800 1150 1440 Balance -50 -310 -720 Result Diagrams: 07/28/18 04:47 Phys Exam - Physical Examination Constitutional: NAD Speech dysarthric HEENT: moist MMs Using gauze as eye patch Neck: supple Respiratory: clear to auscultation bilateral Cardiovascular: RRR Gastrointestinal: soft, non-tender Musculoskeletal: no edema, pulses present (radial) Right sided weakness Psychiatric: normal affect, A&O x 3 Dx/Plan (1) CVA (cerebral vascular accident) Code(s): I63.9 - CEREBRAL INFARCTION, UNSPECIFIED Status: Acute (2) Atrial fibrillation Code(s): I48.91 - UNSPECIFIED ATRIAL FIBRILLATION Status: Acute (3) HTN (hypertension) Code(s): I10 - ESSENTIAL (PRIMARY) HYPERTENSION Status: Acute (4) Back pain Code(s): M54.9 - DORSALGIA, UNSPECIFIED Status: Acute (5) CVA, old, hemiparesis Code(s): I69.359 - HEMIPLGA FOLLOWING CEREBRAL INFARCTION AFFECTING UNSP SIDE Status: Acute (6) SHALONDA (acute kidney injury) Code(s): N17.9 - ACUTE KIDNEY FAILURE, UNSPECIFIED Status: Acute - Plan Plan: Mr Pineda is a 67yo male who presenting with right sided weakness concerning for acute CVA vs residual deficits from prior CVA Right sided weakness - persistent right sided weakness since prior CVA last year. No CTA preformed due to reported iodine allergy. - Carotid dopplers wnl. - MRI: subcortical abnormalities, unable to be completely evaluated. Neurosurgery consulted. appreciate recs - Repeat MRI w/con outpt in 3 weeks per neurosurg - Hold ASA, Eliquis until outpt MRI - Continue Atorvastatin - Neurochecks q4hrs - Awaiting placement for discharge Atrial fibrillation - Eliquis and ASA held, 2/2 poss hemorrhagic conversion of ischemic CVA. - Restart ASA and eliquis after outpt MRI - Continue metoprolol - Monitor on tele Non sustained vtach - Symptomatic sinus pause x2 (2/) - Possibly sick sinus syndrome. - Cardiology consulted, Dr. Singh, recommend EP consult. - EP ([facility] recommended continuing metoprolol, follow up outpatient - Continue metoprolol - No cardiac intervention at this time Hx of CVA - Manage as above SHALONDA, resolved HTN - Continue home meds Code Status: FULL DVT ppx: holding for 3 weeks until repeat MRI Dispo: awaiting placement, D/C to [facility]pt [facility]hab vs [facility] Addendum - Attending - Attending Attestation Date/Time: 08/02/18 1650 I personally evaluated the patient and discussed the management with Dr. Sarita Armstrong I agree with the History, Examination, Assessment and Plan documented above with any addition or exceptions noted below. Patient for rehab DOAC on hold pending f/u MRI 3 weeks.
[2018-08-02] MEDS: Loratadine 10 MG TAB PO SCH (09:42)
[2018-08-02] MEDS: Acetaminophen 325 MG TAB PO PRN (09:54)
--- NOTE | 2018-08-02 11:02 | PDOC.CTH ---
Cardiology Progress Note - Subjective EP PROGRESS NOTE: 08/02/18 Seen and evaluated as follow up for A Fib, anticoagulation management, and sick sinus syndrome. Heart rates stable over HS. No new cardiac concerns or complaints. Remains off OAC. Possible rehab placement. Denies heart racing, palpitations, chest pain/pressure, new stroke like symptoms , dizziness, or passing out. - Objective Vital Signs Temp Pulse Resp BP Pulse Ox 08/02/18 07:41 98.7 F 55 L 20 145/71 H 98 08/02/18 04:00 97.9 F 56 L 16 120/64 98 08/02/18 00:16 97.1 F L 87 16 114/58 L 96 Weight 255 lb 08/01/18 08/02/18 08/03/18 06:59 06:59 06:59 Intake Total 840 960 Output Total 1150 2040 Balance -310 -1080 - Physical Examination General/Neuro: alert & oriented x3, NAD Neck: carotid US brisk, no JVD present Lungs: CTA, unlabored respirations Heart: PMI normal Abdomen: NT/ND, soft - Telemetry Telemetry Rhythm: AF - Labs Result Diagrams: 07/28/18 04:47 Troponin/CKMB CK-MB (CK-2) 4.0 ng/mL (0-6.6) 07/25/18 06:59 Troponin I 0.026 ng/mL (< 0.028) 07/25/18 19:03 - Assessment/Plan 1. Atrial fibrillation, possibly chronic - tachy/kassy syndrome:largely mild bradycardia at HS which we will monitor for now. Continue beta jamal for tachy episodes. Would refrain from PPM for now. Symptoms are minimal and poorly correlate with HR variation - rate controlled - continue Toprol XL 25mg QD - normal lefta trial size 2. Non sustained ventricular tachycardia - short, without recurrence 3. Cardiomyopathy,mild to moderate - EF 40-45% 4. Cerebrovascular accident - embolic CVA in 04/2018. - Now minor hemorrhagic changes seen in ria-infarct area 5. CHADS2-VASC: >/=3 - Eliquis on hold with concern for hemorrhagic CVA. - plan to possibly resume after OP MRI? Continue betablocker therapy and tele. Resume OAC once cleared by neuro then can consider additional treatment for his atrial fibrillation.
[2018-08-02] MEDS: Atorvastatin Calcium 40 MG TAB PO SCH (21:54)
--- NOTE | 2018-08-03 06:29 | PDOC.FM ---
- Subjective Subjective: No overnight events. He reports indigestion. Denies SOB, chest pain. Continues to have right sided weakness. His sister is currently working on his insurance so he may qualify for inpt rehab placement. No other concerns. - Objective MAR Reviewed: Yes Vital Signs & Weight: Vital Signs (12 hours) Temp Pulse Resp BP Pulse Ox 08/03/18 04:00 97.4 F L 73 16 123/58 L 100 08/03/18 00:00 97.3 F L 80 16 127/61 100 08/02/18 20:50 100 08/02/18 20:00 99.2 F 64 16 133/72 100 Weight Weight 115.666 kg I&O: 08/01/18 08/02/18 08/03/18 06:59 06:59 06:59 Intake Total 840 960 480 Output Total 1150 2040 1999 [facility]310 -2036 -1520 Result Diagrams: 07/28/18 04:47 Phys Exam - Physical Examination Constitutional: NAD HEENT: moist MMs wearing eye patch Neck: supple Respiratory: clear to auscultation bilateral Cardiovascular: RRR, no significant murmur Gastrointestinal: soft, non-tender, positive bowel sounds Musculoskeletal: no edema, pulses present right sided weakness Psychiatric: normal affect, A&O x 3 Dx/Plan (1) CVA (cerebral vascular accident) Code(s): I63.9 - CEREBRAL INFARCTION, UNSPECIFIED Status: Acute (2) Atrial fibrillation Code(s): I48.91 - UNSPECIFIED ATRIAL FIBRILLATION Status: Acute (3) HTN (hypertension) Code(s): I10 - ESSENTIAL (PRIMARY) HYPERTENSION Status: Acute (4) Back pain Code(s): M54.9 - DORSALGIA, UNSPECIFIED Status: Acute (5) CVA, old, hemiparesis Code(s): I69.359 - HEMIPLGA FOLLOWING CEREBRAL INFARCTION AFFECTING UNSP SIDE Status: Acute (6) SHALONDA (acute kidney injury) Code(s): N17.9 - ACUTE KIDNEY FAILURE, UNSPECIFIED Status: Acute - Plan Plan: Mr Pineda is a 67yo male who presenting with right sided weakness concerning for acute CVA vs residual deficits from prior CVA Right sided weakness - persistent right sided weakness since prior CVA last year. No CTA preformed due to reported iodine allergy. - Carotid dopplers wnl. - MRI: subcortical abnormalities, unable to be completely evaluated. Neurosurgery consulted. appreciate recs - Repeat MRI w/con outpt in 3 weeks per neurosurg - Hold ASA, Eliquis until outpt MRI - Continue Atorvastatin - Neurochecks q4hrs - Awaiting placement for discharge Atrial fibrillation - Eliquis and ASA held, 2/2 poss hemorrhagic conversion of ischemic CVA. - Restart ASA and eliquis after outpt MRI - Continue metoprolol - Monitor on tele Non sustained vtach - Symptomatic sinus pause x2 (07/28) - Possibly sick sinus syndrome. - Cardiology consulted, Dr. Singh, recommend EP consult. - EP ([facility]) recommended continuing metoprolol, follow up outpatient - Continue metoprolol - No cardiac intervention at this time Hx of CVA - Manage as above SHALONDA, resolved HTN - Continue home meds Code Status: FULL DVT ppx: holding for 3 weeks until repeat MRI Dispo: awaiting placement, D/C to inpt rehab vs snf Addendum - Attending - Attending Attestation Date/Time: 08/03/18 530 I personally evaluated the patient and discussed the management with Dr. Dodd I agree with the History, Examination, Assessment and Plan documented above with any addition or exceptions noted below. Patient for pending disposition Rehab understand he is currently on furlough from incarceration due to illness.
[2018-08-03] MEDS ORDERED: Calcium Carbonate 500 MG ChewTAB PO PRN (09:08)
[2018-08-03] MEDS: Loratadine 10 MG TAB PO SCH (09:46)
--- NOTE | 2018-08-03 13:54 | PDOC.CTH ---
Cardiology Progress Note - Subjective EP PROGRESS NOTE: 08/03/18 Seen and evaluated as follow up for A Fib, anticoagulation management, and sick sinus syndrome. Heart rates stable over HS. No new cardiac concerns or complaints. Remains off OAC. Possible rehab placement. Denies heart racing, palpitations, chest pain/pressure, new stroke like symptoms , dizziness, or passing out. - Objective Vital Signs Temp Pulse Resp BP Pulse Ox 08/03/18 12:00 98.8 F 70 20 124/65 92 L 08/03/18 07:59 99 F 60 20 138/75 93 L 08/03/18 04:00 97.4 F L 73 16 123/58 L 100 Weight 255 lb 08/02/18 08/03/18 08/04/18 06:59 06:59 06:59 Intake Total 960 480 480 Output Total 2040 2000 550 Balance -1478 -1520 -70 - Physical Examination General/Neuro: NAD, other: (alert, poor historian.) Neck: carotid US brisk, no JVD present Lungs: CTA, unlabored respirations Abdomen: NT/ND, soft - Telemetry Telemetry Rhythm: AF - Labs Result Diagrams: 07/28/18 04:47 Troponin/CKMB CK-MB (CK-2) 4.0 ng/mL (0-6.6) 07/25/18 06:59 Troponin I 0.026 ng/mL (< 0.028) 07/25/18 19:03 - Assessment/Plan 1. Atrial fibrillation, possibly chronic - tachy/kassy syndrome:largely mild bradycardia at HS which we will monitor for now. Continue beta jamal for tachy episodes. Would refrain from PPM for now. Symptoms are minimal and poorly correlate with HR variation - rate controlled - continue Toprol XL 25mg QD - normal left atrial size 2. Non sustained ventricular tachycardia - short, without recurrence 3. Cardiomyopathy,mild to moderate - EF 40-45% 4. Cerebrovascular accident - embolic CVA in 04/2018. - Now minor hemorrhagic changes seen in ria-infarct area 5. CHADS2-VASC: >/=3 - Eliquis on hold with concern for hemorrhagic CVA. - plan to possibly resume after OP MRI? Continue betablocker therapy and tele. Resume OAC once cleared by neuro then can consider additional treatment for his atrial fibrillation. EP signing off
[2018-08-03] MEDS: Atorvastatin Calcium 40 MG TAB PO SCH (21:06)
--- NOTE | 2018-08-04 06:17 | PDOC.FM ---
- Subjective Subjective: Feeling well this morning. He had a 5 beat run of wide complex Vtach this morning. Asymptomatic. He denies dizziness, chest pain, shortness of breath. - Objective MAR Reviewed: Yes Vital Signs & Weight: Vital Signs (12 hours) Temp Pulse Resp BP Pulse Ox 08/04/18 04:00 98.1 F 58 L 18 148/72 H 98 08/04/18 00:09 97.9 F 69 16 126/59 L 97 08/03/18 20:00 99.1 F 59 L 18 138/67 96 Weight Weight 115.666 kg I&O: 08/02/18 08/03/18 08/04/18 06:59 06:59 06:59 Intake Total 939 655 1674 Output Total 2040 2000 1220 [facility] -1080 -1520 -20 Result Diagrams: 07/28/18 04:47 Phys Exam - Physical Examination Constitutional: NAD HEENT: moist MMs Neck: supple Respiratory: no wheezing, clear to auscultation bilateral Cardiovascular: RRR, no significant murmur Gastrointestinal: soft, non-tender Musculoskeletal: no edema, pulses present right sided weakness Psychiatric: normal affect, A&O x 3 Skin: no rash, cap refill <2 seconds Dx/Plan (1) CVA (cerebral vascular accident) Code(s): I63.9 - CEREBRAL INFARCTION, UNSPECIFIED Status: Acute (2) Atrial fibrillation Code(s): I48.91 - UNSPECIFIED ATRIAL FIBRILLATION Status: Acute (3) HTN (hypertension) Code(s): I10 - ESSENTIAL (PRIMARY) HYPERTENSION Status: Acute (4) Back pain Code(s): M54.9 - DORSALGIA, UNSPECIFIED Status: Acute (5) CVA, old, hemiparesis Code(s): I69.359 - HEMIPLGA FOLLOWING CEREBRAL INFARCTION AFFECTING UNSP SIDE Status: Acute (6) SHALONDA (acute kidney injury) Code(s): N17.9 - ACUTE KIDNEY FAILURE, UNSPECIFIED Status: Acute - Plan Plan: Mr Pineda is a 67yo male who presenting with right sided weakness concerning for acute CVA vs residual deficits from prior CVA Right sided weakness - persistent right sided weakness since prior CVA last year. No CTA preformed due to reported iodine allergy. - Carotid dopplers wnl. - MRI: subcortical abnormalities, unable to be completely evaluated. Neurosurgery consulted. appreciate recs - Repeat MRI w/con outpt in 3 weeks per neurosurg - Hold ASA, Eliquis until outpt MRI - Continue Atorvastatin - Neurochecks qshift - Awaiting placement for discharge Atrial fibrillation - Eliquis and ASA held, / poss hemorrhagic conversion of ischemic CVA. - Restart ASA and eliquis after outpt MRI - Continue metoprolol - Monitor on tele Nonsustained Vtach - Symptomatic sinus pause x2 (07/28), Wide complex Vtach 08/04 - Possibly sick sinus syndrome. - Cardiology consulted, Dr. Singh, recommend EP consult. - EP ([facility]) consulted, recommends follow up outpatient - Continue metoprolol - No cardiac intervention at this time HTN - Continue home meds Hx of CVA - Manage as above SHALONDA, resolved Code Status: FULL DVT ppx: holding for 3 weeks until repeat MRI Dispo: awaiting placement, CM following Addendum - Attending - Attending Attestation Date/Time: 08/04/18 9260 I personally evaluated the patient and discussed the management with Dr. Armstrong I agree with the History, Examination, Assessment and Plan documented above with any addition or exceptions noted below. Run PVCs noted his previously was started on betablocker and evaluated by [employer] and [employer] will check magnesium and electrolytes. Patient with Rehab bed in [place] should be stable for dismissal later today if lab wnl and he remains asymptomatic.
[2018-08-04] MEDS: Loratadine 10 MG TAB PO SCH (10:32)
[2018-08-04 11:49] VITALS: BP 122/73; TEMP 97.6
[2018-08-04 12:17] LABS: Magnesium 1.8 mg/dL (1.6-2.6); Phosphorus 4.2 mg/dL (2.3-4.7)
--- NOTE | 2018-08-05 08:48 | DIS ---
DATE OF ADMISSION: 07/25/2018 DATE OF DISCHARGE: 08/04/2018 RESIDENT: Cesia Armstrong MD, PGY-1. ADMITTING ATTENDING: Aldo Gomez MD DISCHARGE ATTENDING: Alexis Beckford MD CONSULTS: 1. Cardiology. 2. Electrophysiology. PROCEDURES: 1. Brain MRI, cortically based signal abnormality do not have the appearance of typically cortically based infarct, particularly the one along the left frontal cerebral convexity where there is low T2 signal with patchy areas of high T1 signal. This may reflect a small cortically based infarct with some hemorrhagic conversion. A hemorrhagic cortically based mass with surrounding vasogenic edema cannot be entirely excluded. Additional small signal abnormality seen involving the cortex of the left parietal lobe without associated restricted diffusion, also suspicious for a very late subacute cortically based infarct or metastatic lesion. Follow up MRI of the brain with and without contrast is recommended for additional characterization. 2. Carotid Doppler study. No evidence of hemodynamically significant stenosis of either internal carotid artery. 3. Echocardiogram, EF estimated 40% to 45%, maybe underestimated secondary to bradycardia. Diastolic function cannot be assessed secondary to atrial fibrillation, mild mitral, aortic, and tricuspid regurg. PRIMARY DIAGNOSES: 1. Right-sided weakness secondary to cerebrovascular accident. 2. Nonsustained ventricular tachycardia. 3. Atrial fibrillation. SECONDARY DIAGNOSES: 1. Hypertension. 2. History of cerebrovascular accident. 3. Acute kidney injury, resolved. DISCHARGE MEDICATIONS: 1. Atorvastatin 40 mg at bedtime. 2. Loratadine 10 mg q.a.m. 3. Metoprolol 25 mg daily. 4. Ipratropium bromide 2.5 mL nebulized q.6 hours for 3 days. 5. Zofran 4 mg p.r.n. 6. Hydrochlorothiazide 25 mg q.a.m. DISCONTINUED MEDICATIONS: 1. Eliquis. 2. Aspirin. HISTORY OF PRESENT ILLNESS/HOSPITAL COURSE: Mr. Pineda is a 67-year-old male, who presented to the ED for right-sided weakness and numbness. Upon further questioning, he told us he had never made a full recovery after his last stroke and pretended to get stronger, so that he get out of the hospital. His blood pressure was noted to be elevated at admission, 173/85. The patient who reported the estimated time of weakness was 2030, the night prior to presentation. Aspirin was given in the ED. He had been taking chronic Eliquis for his atrial fibrillation. Due to patient having a reported iodine allergy, no CTA was performed. MRI showed subcortical abnormality, unable to completely be evaluated and a finding that may reflect a small cortically based infarct with some hemorrhagic conversion. Neurosurgery was consulted and recommended repeat MRI with contrast in 3 weeks and until then, hold aspirin and Eliquis. Carotid Dopplers were normal. Neuro check showed no change in the patient's weakness or symptoms. The patient was continued on atorvastatin, and aspirin was held as above. Echo showed EF of 40% to 45%, and no evidence of clot. The troponins were negative x3. Fasting lipid panel was obtained, within normal limits. TSH is normal. Syphilis, hep B, HIV nonreactive. 2 Episodes of Nonsustained ventricular tachycardia. The patient had symptomatic sinus pause twice on July 28 and episode of wide-complex ventricular tachycardia on 08/04/2018. Cardiology was consulted. Dr. Singh recommended an Electrophysiology consult. Dr. Gallegos was consulted and recommended continuing beta-jamal therapy. Not recommended to pursue pacemaker placement at this time. Symptoms did not correlate with tachycardia. Cardiomyopathy. Ejection fraction was 40% to 45%, managed with medications. Atrial fibrillation. He had been anticoagulated with Eliquis prior to admission but due to concern for hemorrhagic CVA, this was held until his repeat MRI. He does have a CHADS-VASc of 3. This will need to be followed up outpatient after MRI. Hypertension was controlled with home medications. DISPOSITION: Stable. DISCHARGE INSTRUCTIONS: 1. Location: [facility]. 2. Diet: Heart healthy. 3. Activity: No restrictions, assistance to ambulate. 4. Followup: Follow up with doctor at the rehab facility as the patient is currently on furlough from shelter for medical leave. Job ID: [id number] [facility]
== END 2018-08-04 13:36 | DRG 65 ==
LOC: ERS 23:33 → 2SE 07-25 00:26
PROVIDERS: ADMIT Family Medicine; ATTEND Family Medicine
DX: I62.9 Nontraumatic intracranial hemorrhage, unspecified (principal); I69.351 Hemiplegia and hemiparesis following cerebral infarction affecting right dominant side; N17.9 Acute kidney failure, unspecified; I47.2 Ventricular tachycardia; I42.9 Cardiomyopathy, unspecified; I48.1 Persistent atrial fibrillation; I10 Essential (primary) hypertension; G89.29 Other chronic pain; M54.9 Dorsalgia, unspecified; M25.562 Pain in left knee; F17.290 Nicotine dependence, other tobacco product, uncomplicated; I49.5 Sick sinus syndrome; Z79.82 Long term (current) use of aspirin; I25.2 Old myocardial infarction; Z82.49 Family history of ischemic heart disease and other diseases of the circulatory system
CPT/HCPCS: 36415; 70551; 80048; 80061; 82553; 83735; 84100; 84443; 84484; 85610; 85730; 86780; 87340; 87389; 90471; 90662; 90670; 93005; 93010; 93306; 93880; G0008; G0009; J0360; J7120